=== PATIENT | female | born 1945 | race Caucasian/White ===

== ENCOUNTER 2016-11-17 07:37 | Day surgery (SDC) | payer MEDICARE, BC ==
[~2016-11-17 07:37] MED LIST: Buffered Lidocaine 0.9% SYRIN* 5 ML/SYR SYRINGE INTRADERM ONE
[2016-11-17] MEDS ORDERED: ceFAZolin 2 GM PREMIX (*) 50 ML IVPB ONE (08:23)
[2016-11-17] MEDS ORDERED: Midazolam* 1 MG/ML 2 ML VIAL (2 MG) ONE ×2 (09:10→10:01)
[2016-11-17] MEDS ORDERED: fentaNYL* 50 MCG/ML 2 ML VIAL (100 MCG VIAL) ONE (09:10)
[2016-11-17] MEDS ORDERED: Bupivacaine 0.5% SDV PF* 30 ML VIAL ONE ×2 (09:37→09:53)
[2016-11-17] MEDS ORDERED: Famotidine IV* 10 MG/ML 2 ML (20 mg) ONE (09:38)
[2016-11-17] MEDS ORDERED: Mepivacaine 2% MPF (20 MG/ML)* 20 ML MPF ONE (09:53)
[2016-11-17] MEDS ORDERED: Lidocaine 2% PF * 5 ML VIAL ONE (10:19)
[2016-11-17] MEDS ORDERED: Propofol* 10 MG/ML 20 ML BTL IV PUSH ONE (10:19)
[2016-11-17] MEDS ORDERED: Ketorolac INJ* 30 MG/ML 1 ML VIAL ONE (10:19)
[2016-11-17] MEDS ORDERED: Dexamethasone IV* 4 MG/ML 1 ML (4 MG) ONE (10:47)
[2016-11-17] MEDS ORDERED: Ondansetron INJ* 2 MG/ML VIAL ONE (10:48)
[2016-11-17] MEDS ORDERED: DiMENhydriNATE IV* 50 MG/ML VIAL IV PUSH PRN (11:24)
[2016-11-17] MEDS ORDERED: Acetaminophen TAB* 325 MG PO PRN (11:24)
[2016-11-17] MEDS ORDERED: HYDROcodone/ACETAMIN 5-325 MG* 1 TAB PO PRN (11:24)
[2016-11-17] MEDS ORDERED: Ondansetron INJ* 2 MG/ML VIAL IV PRN (11:24)
[2016-11-17 12:09] VITALS: BP 108/68
--- NOTE | 2016-11-18 04:23 | OP ---
DATE OF OPERATION: 11/17/[address] [facility] DATE OF : 47 SURGEON: Ruma Moody MD. [employer] DEVELOPER: CHANDA Koch. ANESTHESIOLOGIST: Dr. Holcomb ANESTHESIA: Block. PRE-OP DIAGNOSIS: Distal radius fracture on the right. POST-OP DIAGNOSIS: Distal radius fracture on the right. OPERATIVE PROCEDURE: Open reduction internal fixation of the right distal radius. ESTIMATED BLOOD LOSS: Zero. TOURNIQUET TIME: About 45 minutes. INDICATIONS FOR PROCEDURE: Lina is a 71-year-old female who injured her right wrist when she fell. She has a displaced fracture of the distal radius extraarticular with comminution and angulation. She presents for ORIF. DESCRIPTION OF PROCEDURE: The patient was brought to the operating room, was given a block anesthetic, then her skin of her right upper extremity was prepped and draped in the usual sterile fashion. The hand and forearm were exsanguinated and tourniquet elevated to 250 mmHg. A longitudinal incision was made over the FCR tendon. We dissected sharply through the subcutaneous tissue down to the tendon. The superficial and deep part of the tendon sheath were incised longitudinally and then the FPL tendon was retracted. The pronator quadratus muscle was dissected off the distal radius. The fracture was then reduced and secured with a narrow 6-hole plate from the [employer] locking distal radius set. There were 4 distal screws and 3 proximal screws. The position of the hardware and fracture fragments were checked on the C-arm in the AP and lateral views and found to be satisfactory. The length was gained back of the radius as was the palmar tilt. The wound was irrigated. The pronator quadratus was repaired over the plate. The FCR tendon sheath was repaired with 3-0 Polysorb suture, and the skin edges were reapproximated with 4 -0 nylon suture. The wound was dressed with Xeroform, 4x4, Webril, and a volar splint. The patient tolerated the procedure and was brought to the recovery room in good condition. [id number]/[facility] #: [id number] [facility]
--- NOTE | 2016-11-18 13:28 | RAD ---
INDICATION: ORIF RIGHT wrist. COMPARISON: November 07, 2016 TECHNIQUE: 1 minute 29 seconds fluoroscopy. FINDINGS: Spot images document a volar cortical plate and multiple fixation screws bridging the distal metaphyseal fracture of the radius with resulting gross anatomic alignment. Mildly displaced ulnar styloid avulsion fracture noted. IMPRESSION: Procedural fluoroscopy. CPT II Codes: 6045F
== END 2016-11-17 12:11 | disposition home or self-care (01) ==
LOC: OREAST 07:37
PROVIDERS: ATTEND Orthopaedic Surgery
DX: S52.551A Other extraarticular fracture of lower end of right radius, initial encounter for closed fracture (principal); W01.0XXA Fall on same level from slipping, tripping and stumbling without subsequent striking against object, initial encounter; Y92.9 Unspecified place or not applicable
CPT/HCPCS: 76000; C1713; C1776; J0670; J0690; J1100; J1885; J2250; J2405; J2704; J3010